=== PATIENT | female | born 1940 | race Caucasian/White ===

== ENCOUNTER 2016-03-29 08:22 | Day surgery (SDC) | payer OTHER ==
[~2016-03-29] VITALS: Ht 167.6 cm; Wt 60.7 kg
[2016-03-29] MEDS ORDERED: SODIUM BICARBONATE 100 MEQ in D5W 1000 ML IV SCH (09:30)
[2016-03-29 09:50] LABS: AUTOMATED NEUTROPHIL # 3.1 TH/MM3 (1.8-7.7); BASOPHIL % 0.5 % (0.0-2.0); EOSINOPHIL # 0.1 TH/MM3 (0-0.4); EOSINOPHIL % 2.4 % (0.0-4.0); HEMATOCRIT 34.9 % (35.0-46.0); HEMO FLAGS DIFF FINAL; LYMPH % 34.3 % (9.0-44.0); MEAN CELL VOLUME 90.6 FL (80.0-100.0); MEAN CORPUSCULAR HEMOGLOBIN 30.9 PG (27.0-34.0); MEAN CORPUSCULAR HGB CONC 34.1 % (32.0-36.0); NEUT % 53.8 % (16.0-70.0); PLATELET COUNT 222 TH/MM3 (150-450); RED BLOOD COUNT 3.85 MIL/MM3 (4.00-5.30); RED CELL DISTRIBUTION WIDTH 12.2 % (11.6-17.2); WHITE BLOOD COUNT 5.7 TH/MM3 (4.0-11.0)
[2016-03-29 10:05] VITALS: BP 220/103; PULSE 74; RESP 18; TEMP 98; O2SAT 99
[2016-03-29 10:05] LABS: BICARBONATE 28.4 MEQ/L (21.0-32.0); POTASSIUM 3.9 MEQ/L (3.5-5.1)
[2016-03-29 10:07] LABS: PROTHROMBIN TIME - PATIENT 10.5 SEC (9.8-11.6)
[2016-03-29] MEDS ORDERED: LANTUS2P SQ (10:12)
[2016-03-29] MEDS ORDERED: PLAV75TA29 PO (10:12)
[2016-03-29] MEDS ORDERED: MIDAZOLAM HCL 2 MG/2 ML VIAL ONE ×2 (10:39→11:01)
[2016-03-29] MEDS ORDERED: HEPARIN SODIUM - IV 10,000 UNITS/10 ML VIAL ONE (10:39)
[2016-03-29] MEDS ORDERED: HEPARIN-NS/PF INJ 500 ML ONE (10:39)
[2016-03-29] MEDS ORDERED: NITROGLYCERIN INJ 5 ML ONE (10:40)
[2016-03-29] MEDS ORDERED: CLOPIDOGREL 75 MG TAB ONE (11:53)
[2016-03-29] MEDS ORDERED: cloNIDine HCL 0.1 MG TAB PO PRN (12:45)
[2016-03-29] MEDS ORDERED: LIDOCAINE HCL 1% 50 ML VIAL INFIL PRN (12:45)
[2016-03-29] MEDS ORDERED: LABETALOL HCL 100 MG/20 ML VIAL IVP PRN (12:45)
[2016-03-29] MEDS ORDERED: SODIUM NITROPRUSSIDE 50 MG/250 ML D5W IV SCH ×2 (12:45)
[2016-03-29] MEDS ORDERED: ENALAPRILAT 1.25 MG/ML VIAL IV PRN (12:45)
[2016-03-29] MEDS ORDERED: LORazepam 2 MG/ML VIAL IVP PRN (12:45)
[2016-03-29] MEDS ORDERED: HOLD GLUCOPHAGE, GLUCOPHAGE XR, AND AVANDAMET XX PRN (12:45)
[2016-03-29] MEDS ORDERED: SODIUM CHLORIDE 5 ML FLUSH PRN IVF (12:45)
[2016-03-29] MEDS ORDERED: ONDANSETRON HCL 4 MG/2 ML VIAL IV PRN (12:45)
[2016-03-29] MEDS ORDERED: SODIUM CHLOR 0.9% 250 ML IV PRN (12:45)
[2016-03-29] MEDS ORDERED: METOCLOPRAMIDE HCL 10 MG/2 ML VIAL IVS PRN (12:45)
[2016-03-29] MEDS ORDERED: ATROPINE SULFATE 1 MG/ML VIAL IV PUSH PRN (12:45)
[2016-03-29] MEDS ORDERED: POTASSIUM CHLORIDE 20 MEQ CONTROLLED RELEASE TAB PO PRN (12:45)
--- NOTE | 2016-03-29 13:08 | MA ---
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 PROCEDURES 1. Aortogram. 2. Selective left lower extremity arteriogram. 3. Balloon angioplasty with pre-dilatation with a 5 x 20-cm Medtronic Admiral balloon, then subsequently using a 6 x 120 and a 6 x 150 Medtronic drug-eluting balloon. ANESTHESIA Moderate sedation. IV FLUIDS Greater than 1 liter. ESTIMATED BLOOD LOSS Minimal. URINE OUTPUT Not calculated. COMPLICATIONS None. DISPOSITION To PACU. BRIEF HISTORY This is a pleasant 75-year-old female with a history of critical limb ischemia in her left lower extremity who had a previous history of balloon angioplasty with selective stenting to re-channel her left superficial femoral artery. It should be noted that the patient has healed her left lower extremity wound but on surveillance ultrasound was found to have increased velocities of her left SFA that were concerning for in-stent restenosis. Based on this, we brought the patient for arteriogram, possible intervention. PROCEDURE The patient's right groin was prepped and draped in a sterile fashion. I got access to the right common femoral artery using duplex ultrasound. I did inject 5 cc of 1% lidocaine with epinephrine to make a subcutaneous galo. I placed the 21-gauge needle and exchanged it over a non-braided wire for a 4-Andorran micropuncture catheter in exchange for a 5-Andorran sheath. I then advanced an Omni-Flush catheter over an Advantage wire into the abdominal aorta. I pulled my catheter in and shot pelvic oblique arteriograms and selective left common femoral artery and shot selective left lower short arteriogram. After this is done, we exchanged for a 6-Andorran, 45-cm Cook sheath and after this was performed, we heparinized the patient to an ACT of greater than 200. I then performed pre-dilatation of a left SFA lesion within the stent with 20-cm x 5-mm Medtronic balloon, then subsequently and performed two inflations with a 120 and 150 x 6-mm drug-eluting balloon in the left SFA stent. Subsequently I did use a 4 x 6 balloon in one area of residual stenosis in which I inflated a higher pressure. It should be noted that the patient had resolution of all the in-stent restenoses by the end of the procedure with good flow and no dissection distally. FINDINGS 1. The abdominal aorta was widely patent. 2. The bilateral renal arteries are patent. 3. The bilateral common, internal and external iliac arteries are patent. 4. The right common femoral and profunda femoral artery is patent. The sheath was then just above the origin of the right SFA which appeared to be patent. 5. The left common femoral and profunda femoral arteries widely patent. 6. The left SFA had multicentric short segment stenoses along its length. 7. 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 So after the history of a nonhealing wound that essentially healed after re-channeling her left SFA, the patient was found to have an in-stent restenosis by duplex ultrasound confirmed angiogram. We performed balloon angioplasty as previously described with resolution of her in-stent restenosis. At the end of the procedure, we exchanged for a short 6-Andorran sheath and the ACT was still greater than 200. Heparinized the sheath and we are going to apply pressure to the groin in the DOCU. SUMMARY So in summary the patient had in-stent stenosis of her left SFA that was treated with drug-eluting balloon angioplasty with good resolution. DO EDWIN Correa/JESS /12:04 PM /12:51 PM
[2016-03-29] MEDS ORDERED: IOHEXOL 350 MG/ML 50 ML BTL (for Cath Lab) OTHER ONE (15:12)
[2016-03-29] MEDS ORDERED: IOHEXOL 350 MG/ML 100 ML BTL (for Cath Lab) OTHER ONE (15:12)
[2016-03-29] MEDS ORDERED: oxyCODONE/ACETAMINOPHEN 5 MG/325 MG TAB PO PRN ×2 (17:15)
[2016-03-29] MEDS ORDERED: SODIUM CHLORIDE 5 ML FLUSH BID IVF SCH (21:00)
[2016-03-30] MEDS ORDERED: ASPIRIN EC 81 MG TABEC PO SCH (09:00)
== END 2016-03-29 20:40 | disposition home or self-care (01) ==
LOC: HDOC 08:22 → HDIC 08:23 → HDOC 20:40
PROVIDERS: ATTEND Surgery
DX: I73.9 Peripheral vascular disease, unspecified (principal); E11.59 Type 2 diabetes mellitus with other circulatory complications; Z79.4 Long term (current) use of insulin; I10 Essential (primary) hypertension
CPT/HCPCS: 37224; 75625; 75710; 80048; 85002; 85025; 85347; 85610; C1725; C1751; C1769; C1893; C2623; J1644; J2250; J3010; J7070; Q9967